=== PATIENT | female | born 1990 | race Caucasian/White ===

== ENCOUNTER 2017-04-17 00:01 | Emergency (ER) | payer OTHER ==
--- NOTE | 2017-04-17 05:38 | ER ---
ADMIT: 04/17/2017 RM/LOC: ER [facility] MR#: [id number] [id number] [place] , Emergency Room Report SEX: F AGE: 26 : 1990 DATE: 04/17/2017 The patient is a 26-year-old female with family history of renal colic, developed acute onset left flank pain with urgency, nausea, and vomiting x3, and coke-colored urine tonight. Exam remarkable for acutely uncomfortable afebrile female. Benign abdominal exam. No CVA tenderness. CT does show 3 mm proximal left ureteral stone with mild hydro. Urinalysis shows 1+ leukocyte esterase, 3+ blood, 2416 rbc's. Culture pending. HCG negative. CMP negative. WBC 14.2. CRP less than 0.29. The patient was given a liter of fluid, Zofran, Toradol, Dilaudid, Flomax with relief of discomfort. Sent home with instruction to push oral fluids. Avoid pop, strain urine. Follow up Dr. Garcia if not improved in a weeks' time, otherwise as needed. Flomax 0.4 mg daily p.r.n. renal colic #20, hydrocodone 5/325 q.4-6 hours p.r.n. #30 plus 6 from Pyxis. Jagdeep Lira MD/ lucial JOB #: [id number] CC: Jagdeep Lira MD, Attending Physician Aaliyah Blanco MD
== END 2017-04-17 01:47 | disposition home or self-care (01) ==
LOC: ER 00:01
DX: N13.2 Hydronephrosis with renal and ureteral calculous obstruction (principal)